=== PATIENT | male | born 1960 | race Caucasian/White ===

== ENCOUNTER 2018-09-22 17:17 | Emergency (ER) | payer MEDICAID ==
[~2018-09-22] VITALS: Ht 160 cm; Wt 64.5 kg
[2018-09-22 17:18] VITALS: BP 129/81; PULSE 74; RESP 20; Ht 160 cm; Wt 64.5 kg
[2018-09-22] MEDS ORDERED: FLUORESCEIN STRIP RIGHT EYE ONE (18:00)
[2018-09-22] MEDS ORDERED: DIPHTH/TET/ACEL PERTUSS (ADULT) 0.5 ML VIAL IM* ONE (18:00)
[2018-09-22] MEDS ORDERED: ERYT1OIN6 OP (18:30)
[2018-09-22] MEDS ORDERED: ACET500C5 PO (18:30)
--- NOTE | 2018-09-22 18:33 | ERD ---
ER Documentation Chief Complaint Chief Complaint LEFT EYE HEMATOMA S/P BRANCH INJURED EYE TODAY HPI 58-year-old male was poked in the left eye with a tree branch today. He has some bleeding. He denies any visual changes or visual field deficits. Tetanus is not up-to-date. ROS All systems reviewed and are negative except as per history of present illness. Medications Home Meds Active Scripts Erythromycin Base (Erythromycin) 1 Gm Oint...g., 1 GM OP TID for 7 Days Prov:NATO ENRIQUEZ MD 09/22/18 Acetaminophen* (Tylophen*) 500 Mg Capsule, 1 CAP PO Q6H PRN for PAIN AND OR ELEVATED TEMP, #15 CAP Prov:NATO ENRIQUEZ MD 09/22/18 Allergies Allergies: Coded Allergies: No Known Allergy (Unverified , 09/22/18) PMhx/Soc Medical and Surgical Hx: pt denies Medical Hx, pt denies Surgical Hx FmHx Family History: No diabetes, No coronary disease, No other Physical Exam Vitals Vital Signs Date Temp Pulse Resp B/P (MAP) Pulse Ox O2 O2 Flow FiO2 Time Delivery Rate 09/22/18 97.5 74 20 129/81 98 17:18 (97) Physical Exam Const: No acute distress Head: Atraumatic Eyes: Abrasion and resolved bleeding on the inferior sclera below the anterior chamber of the left eye. Eyes are PERRLA and extraocular movements intact. Anterior chambers appear normal without hyphema. You have Cetylcide. Positive fluorescein uptake large abrasion on the inferior aspect mostly in the sclera extending into the limbus. Visual acuity is normal. ENT: Normal External Ears, Nose and Mouth. Neck: Full range of motion. No meningismus. Resp: Clear to auscultation bilaterally Cardio: Regular rate and rhythm, no murmurs Abd: Soft, non tender, non distended. Normal bowel sounds Skin: No petechiae or rashes Back: No midline or flank tenderness Ext: No cyanosis, or edema Neur: Awake and alert Psych: Normal Mood and Affect Results 24 hrs Current Medications Medications Dose Sig/Kieran Start Time Status Last (Trade) Ordered Route PRN Stop Time Admin Dose Reason Admin Fluorescein 1 strip ONCE ONCE 09/22/18 DC Sodium RIGHT EYE 18:00 09/22/18 (Apgor-K-Nbod 18:01 p) Diphtheria/ 0.5 ml ONCE ONCE 09/22/18 DC 09/22/18 Tetanus/Acell IM* 18:00 09/22/18 18:24 Pertussis 18:01 (Adacel) Procedures/MDM Patient given a tetanus booster. Patient has positive floor seen uptake with negative Jez sign in the area of the abrasion. Patient presents with what appears to be mostly a scleral abrasion. No evidence of globe rupture, signs of visual changes or symptoms of visual field deficit or symptoms of infection or other eye emergencies. He will be treated with erythromycin ointment, ophthalmology follow-up and Tylenol. He should return sooner for visual mehta es, fevers, facial swelling or orbital swelling, new or worsening symptoms. The patient was stable with no new complaints during the ER course. Clinically, there is no current evidence to suggest meningitis, sepsis, acute abdomen, pneumonia, stroke, acute coronary syndrome, pulmonary embolism, aortic dissection or any other emergent condition appearing to require further evaluati on or hospitalization. Patient counseled regarding my diagnostic impression and care plan. Prior to discharge all questions answered. Pt agrees with treatment plan and understands strict return precautions. Pt is instructed to follow up with primary care provider within 24-48 hours. Precautionary instructions provided including instructions to return to the ER if not improving or for any worsening or changing symptoms or concerns. Departure Diagnosis: Primary Impression: Eye injury Encounter type: initial encounter Laterality: left Qualified Codes: S05.92XA - Unspecified injury of left eye and orbit, initial encounter Condition: Stable Patient Instructions: Corneal Injury, Contusion, Eye Referrals: DOCTOR,NOT ON STAFF (PCP) [facility] Hours: Mon - Tue 9:00 AM - 5:00 PM Additional Instructions: Va al vargas doctor/ specialista para mas evaluacon en el proximo semana. posiblemente necesita autorizado de vargas doctor primario para specialista. Regresa para fiebre, o mas o nueva simptomas. NATO ENRIQUEZ MD Sep 22, 2018 18:33
== END 2018-09-22 18:50 | disposition home or self-care (01) ==
LOC: FTE 17:17
DX: S00.212A Abrasion of left eyelid and periocular area, initial encounter (principal); X58.XXXA Exposure to other specified factors, initial encounter; Y92.9 Unspecified place or not applicable; Z23 Encounter for immunization
CPT/HCPCS: 90471; 90715; Z7502; Z7610

== ENCOUNTER 2019-04-15 12:27 | Emergency (ER) | payer SELFPAY ==
[~2019-04-15] VITALS: Ht 167.6 cm; Wt 67.0 kg
[~2019-04-15 12:27] MED LIST: ACET500C5 PO; ERYT1OIN6 OP; IBUP-1542 PO
[2019-04-15 12:34] VITALS: Ht 167.6 cm; Wt 67.0 kg
[2019-04-15] MEDS ORDERED: KETOROLAC 30 MG INJ IV STA (12:56)
[2019-04-15] MEDS ORDERED: ONDANSETRON 4 MG INJ IV STA (12:56)
[2019-04-15] MEDS ORDERED: SOD CHLORIDE 0.9% 1,000 ML IV STA (12:56)
[2019-04-15] MEDS ORDERED: IOHEXOL 100 ML ONE (14:00)
[2019-04-15] MEDS ORDERED: SOD CHLORIDE 0.9% 100 ML ONE (14:00)
[2019-04-15 15:21] VITALS: BP 118/68; PULSE 70; RESP 20
== END 2019-04-15 15:22 | disposition home or self-care (01) ==
LOC: E/R 12:27
DX: R10.32 Left lower quadrant pain (principal)
CPT/HCPCS: 36415; 75635; 80053; 81003; 83690; 85025; 96374; 96375; 99285; J1885; J2405; J7030; Q9967